=== PATIENT | male | born 1945 | race Caucasian/White ===

== ENCOUNTER → 2020-03-08 | Outpatient (CLI) | payer MEDICARE ==
--- NOTE | 2020-03-08 09:24 | XR ---
EXAMINATION TYPE: XR Hip Complete 2 views RT, XR knee complete 3 views RT DATE OF EXAM: 03/08/2020 Comparison: None Clinical History: 74-year-old male M25.551 R hip pain Findings: Right hip: Mild joint space narrowing in the right hip with subchondral sclerosis. Small focus of degenerative l abral ossification along the superolateral aspect. Mild marginal spurring at the femoral head neck ju nction. No acute fracture, subluxation, or dislocation seen. Right knee: There is tricompartmental degenerative spurring. Nonspecific anterior infrapatellar soft tissue swell ing. Extensive mechanism appears intact. No sizable joint effusion. There is [id number] narrowi ng of medial compartment joint space. No acute fracture, subluxation, or dislocation. Impression: 1. Right hip: Mild right hip OA. No acute osseous abnormality seen. 2. Right knee: Mild tricompartmental osteoarthrosis, more moderate in the medial compartment. Nonspec ific mild anterior infrapatellar soft tissue swelling.
== END | disposition home or self-care (01) ==
LOC: RADXRMAIN 08:20
PROVIDERS: ATTEND Family Medicine
DX: M16.11 Unilateral primary osteoarthritis, right hip (principal); M17.11 Unilateral primary osteoarthritis, right knee
CPT/HCPCS: 73502

== ENCOUNTER → 2020-04-29 | Outpatient (CLI) | payer OTHER ==
--- NOTE | 2020-04-29 13:37 | CT ---
EXAMINATION TYPE: CT chest wo con DATE OF EXAM: 04/29/2020 COMPARISON: No prior CT or chest CT at this institution. HISTORY: Solitary pulmonary nodule. CT DLP: 384.8 mGycm. Automated Exposure Control for Dose Reduction was Utilized. TECHNIQUE: CT scan of the thorax is performed without IV contrast. FINDINGS: LUNGS: Mild respiratory motion artifact degradation in the lower lungs. Mild linear scarring and/or a telectasis inferiorly. No suspicious nodules or masses. No pleural effusion or pneumothorax seen bila terally. MEDIASTINUM: Lack of IV contrast is noted to limit evaluation for mediastinal and especially hilar ad enopathy. There are no definitive greater than 1 cm hilar or mediastinal lymph nodes. No cardiomega ly or pericardial effusion is seen. Early moderate three-vessel coronary artery calcification. OTHER: Cholecystectomy clips noted. Slight scoliotic curvature with moderate multilevel spurring in t he spine. IMPRESSION: No suspicious pulmonary nodules or masses. No acute pulmonary process.
== END | disposition home or self-care (01) ==
LOC: RADCTMAIN 12:23
DX: R91.1 Solitary pulmonary nodule (principal); Z88.8 Allergy status to other drugs, medicaments and biological substances; F17.210 Nicotine dependence, cigarettes, uncomplicated
CPT/HCPCS: 71250

== ENCOUNTER → 2020-06-28 | Outpatient (CLI) | payer OTHER ==
--- NOTE | 2020-06-28 15:22 | XR ---
EXAMINATION TYPE: XR cervical spine limited DATE OF EXAM: 06/28/2020 CLINICAL HISTORY: pain TECHNIQUE: 3 views of the cervical spine are submitted. COMPARISON: None. FINDINGS: Severe multilevel degenerative disc disease extending from C4-5 through C6-7. Ventral and d orsal spondylosis with endplate sclerosis. No evidence for fracture or malalignment. IMPRESSION: No acute fracture or dislocation is seen in the cervical spine.
== END | disposition home or self-care (01) ==
LOC: RADXRMAIN 14:33
PROVIDERS: ATTEND Nurse Practitioner Family
DX: M54.2 Cervicalgia (principal)
CPT/HCPCS: 72040

== ENCOUNTER → 2020-10-06 | Outpatient (CLI) | payer MEDICARE ==
[2020-10-06 13:11] VITALS: BP 130/79; PULSE 80; RESP 16; TEMP 97.7
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
== END ==
LOC: PNWHC3 12:55
PROVIDERS: ATTEND Hospitalist
DX: M47.816 Spondylosis without myelopathy or radiculopathy, lumbar region (principal); M48.02 Spinal stenosis, cervical region; E78.5 Hyperlipidemia, unspecified; I10 Essential (primary) hypertension; E03.9 Hypothyroidism, unspecified; Z79.890 Hormone replacement therapy; Z79.899 Other long term (current) drug therapy; Z87.891 Personal history of nicotine dependence
CPT/HCPCS: 99211

== ENCOUNTER 2020-11-16 06:20 | Day surgery (SDC) | payer MEDICARE ==
[2020-11-12 15:23] VITALS: BMI 30.4
[~2020-11-16 06:20] MED LIST: LACTATED RINGERS 1,000 ML IV SCH
[2020-11-16 06:49] VITALS: RESP 16; TEMP 97.3
[2020-11-16] MEDS ORDERED: LIDOCAINE 1% (10MG/ML) FOR IV START INTRADERMA ONE (06:58)
[2020-11-16] MEDS ORDERED: TRIAMCINOLONE ACETONIDE 40 MG/ML 1 ML VIAL ONE (07:26)
[2020-11-16] MEDS ORDERED: ROPIVACAINE 5MG/ML 20ML VIAL ONE (07:26)
[2020-11-16] MEDS ORDERED: MIDAZOLAM 2 MG/2 ML VIAL ONE (07:26)
[2020-11-16] MEDS ORDERED: LACTATED RINGERS 1,000 ML IV ONE ×2 (07:51)
--- NOTE | 2020-11-16 08:09 | P.PCN ---
Date of Procedure: 11/16/20 Surgeon: Toya Scott Pathology: none sent Condition: stable Disposition: PACU Description of Procedure: PREOPERATIVE DIAGNOSIS : 1- Lumbar spondylosis with Facet Arthropathy without myelopathy . 2- Lumber degenerative disc disease POSTOPERATIVE DIAGNOSIS: 1- Lumbar spondylosis with Facet Arthropathy without myelopathy . 2- Lumber degenerative disc disease PROCEDURE: Diagnostic bilateral L4 -5 , and L5-S1 medial branch block under fluoroscopy Physician: Toya Scott MD ANESTHESIA: Local with 1% lidocaine; IV moderate conscious sedation with Versed 2 mg . EBL: Negligible COMPLICATION: None. PROCEDURE INDICATION: Chronic low back pain secondary to Facet arthropathy unresponsive to conservative treatment. PROCEDURE DESCRIPTION: the patient was seen and identified in the preop holding area , risks and benefits and possible complications of the procedure and alternatives were discussed with the patient, and the patient agreed to proceed with the procedure and signed the consent. IV was started and vital signs monitored during the procedure and fluoroscopy was used to maximize the benefit and accuracy of the needle placement, sedation was given to decrease patient anxiety, patient was taken to the procedure room and placed in prone position vital signs monitored. The patient was brought into the procedure room and placed in prone position. Skin was prepped with Chloraprep and draped in a sterile manner. Lidocaine 1% was used to numb the skin up at the target points that were chosen as follows: at the L5-S1 level which corresponds to the dorsal ramus of L5 the target points were at the superior medial aspect of the sacral ala on each side of the spine on the AP view of fluoroscopy, and for theL3 and L4 medial branches the target points were the connection between the transverse process and the superior to go process of L4 and L5 respectively on the oblique views of fluoroscopy. I used 22-gauge 3-1/2 inch Quincke spinal needles for this procedure and after contacting bone at the target points mentioned above I injected 1 mL of a mixture of Kenalog 40 mg +5 MLS of Ropivacaine 0.5% PF . Patient tolerated procedure well. At the end of the procedure the needles removed and a bandage applied after the skin was cleaned the cleaning solution. patient was then taken to the recovery room in stable condition and monitored in the recovery room for 20-30 minutes and discharged home in stable condition after discharge criteria met . A copy of the needle placement picture was saved to the C-arm machine.
[2020-11-16 08:12] VITALS: BP 117/72; PULSE 66
[2020-11-16] MEDS ORDERED: IV FLUID CONTINUATION 600 ML IV ONE (08:24)
--- NOTE | 2020-11-16 09:03 | FL ---
Fluoroscopy HISTORY: Pain 12 seconds fluoroscopy time supplied to the referring clinician. 4 intraoperative C-arm images docum ent the procedure. See dictated report from anesthesia.
== END 2020-11-16 08:30 | disposition home or self-care (01) ==
LOC: ORPAIN 06:20
PROVIDERS: ATTEND Anesthesiology
DX: G89.29 Other chronic pain (principal); M47.816 Spondylosis without myelopathy or radiculopathy, lumbar region; I10 Essential (primary) hypertension
CPT/HCPCS: 64493; 64494; J2250; J3301; J2795; 99152

== ENCOUNTER → 2020-12-08 | Outpatient (CLI) | payer MEDICARE ==
--- NOTE | 2020-12-08 10:53 | P.PN ---
Subjective Progress Note Date: 12/08/20 This is a follow-up visit for this 75-year-old male, with a chronic history of severe low back pain is diagnosed with lumbar spondylosis with lumbar facet arthropathy, and 11/16/2020 which helped done diagnostic medial branch block lumbar area at L4 5 and L5-S1, patient reported that since the injection his pain level dropped to 0, continue to to be 0/10, able to do more activity he denies any motor or sensory deficit Objective - Exam Physical Examinations : -Constitutiona : Cooperative , not in acute distress . -HEENT : nech : supple , no Lymphadenopathy , normal thyroid size . : eyes : no ptosis , no icterus, no photophobia . - neurologic : Cranial nerve II to XII intact , no focal neurological deffecit . -psychatric : alert , oriented X 3 , appropriate affect , intact judgment and insight . -Lymphatic : no Lymphadenopathy . - musculoskeltal : Lumber spine moter stegnth lower extremities ,thigh and legs 5/5 Right side , 5/5 Left side Assessment and Plan Plan: Assessment and plan=1-lumbar spondylosis with lumbar facet arthropathy without myelopathy Status post diagnostic medial branch block lumbar area at L4 5 and L5-S1 1 he reported that since the injection his pain dropped to 0 and he has 0 pain since the injection, Patient will follow up in the pain clinic when necessary in the futur we can schedule him for repeat diagnostic medial branch block at L4 5 and L5-S1 Time with Patient: Less than 30
[2020-12-08 11:19] VITALS: BP 149/84; PULSE 80; RESP 18; TEMP 98.1
== END ==
LOC: PNWHC3 10:02
PROVIDERS: ATTEND Specialist
DX: M47.816 Spondylosis without myelopathy or radiculopathy, lumbar region (principal)
CPT/HCPCS: 99211

== ENCOUNTER 2021-01-07 07:36 | Day surgery (SDC) | payer MEDICARE ==
[2021-01-04 11:58] VITALS: BMI 30.4
[~2021-01-07 07:36] MED LIST changes: +LIDOCAINE 1% (10MG/ML) FOR IV START INTRADERMA PRN
[2021-01-07 08:02] VITALS: TEMP 97.4
[2021-01-07] MEDS ORDERED: LIDOCAINE 1% INJ 10MG/ML (20 ML MDV) ONE (08:58)
[2021-01-07] MEDS ORDERED: PROPOFOL 10 MG/ML 20 ML VIAL IV ONE (08:58)
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
--- NOTE | 2021-01-07 09:17 | P.PCN ---
Date of Procedure: 01/07/21 Preoperative Diagnosis: Screening Postoperative Diagnosis: Diverticulosis Procedure(s) Performed: Colonoscopy Anesthesia: MAC Surgeon: Juan Francisco Porter Pathology: none sent Condition: stable Disposition: same day Indications for Procedure: 75-year-old male presents today for screening colonoscopy. Risks, benefits and alternatives were provided to the patient. He denies any blood in his stool. He believes his mother does have a history of colon cancer. Operative Findings: Diverticulosis Description of Procedure: The patient was brought into the endoscopy suite and placed in left lateral decubitus position. Adequate sedation was achieved using conscious sedation. A digital rectal exam was performed and mild internal hemorrhoids were palpated. An endoscope was then placed in the rectum and advanced to the cecum as identified by landmarks including the appendiceal orifice and the ileocecal valve. The prep was good. The colonoscope was then slowly withdrawn, examining for any mucosal abnormalities. The cecum, ascending, transverse, descending and sigmoid colon were visualized adequately. There were no large neoplastic lesions noted throughout the colon. There were no obvious polyps noted throughout the colon. Diverticulosis was noted in the sigmoid colon. Retroflexion was performed in the rectum and internal hemorrhoids were visible. Excess air was removed, the colonoscope withdrawn and the procedure terminated. The patient was then transferred to the recovery unit in stable condition. Repeat colonoscopy should be performed in 5 years.
[2021-01-07 09:33] VITALS: BP 120/72; PULSE 63; RESP 16
== END 2021-01-07 10:09 | disposition home or self-care (01) ==
LOC: ORWHC2ENDO 07:36
PROVIDERS: ATTEND Surgery
DX: Z12.11 Encounter for screening for malignant neoplasm of colon (principal); Z80.0 Family history of malignant neoplasm of digestive organs; I10 Essential (primary) hypertension; E78.5 Hyperlipidemia, unspecified; E07.9 Disorder of thyroid, unspecified; Z79.890 Hormone replacement therapy
CPT/HCPCS: G0121; J2001; J2704

== ENCOUNTER → 2021-01-21 | Day surgery (SDC) | payer MEDICARE ==
[2021-01-18 09:50] VITALS: BMI 30.7
[~2021-01-21] MED LIST changes: +IV FLUID CONTINUATION 600 ML IV ONE; +MIDAZOLAM 2 MG/2 ML VIAL ONE; +ROPIVACAINE 5MG/ML 20ML VIAL ONE; +fentaNYL (PF) 50 MCG/ML 2 ML AMP ONE; +methylPREDNISolone ACETATE 40 MG/ML 1 ML VIAL ONE
[2021-01-21 07:27] VITALS: TEMP 97.7
--- NOTE | 2021-01-21 08:29 | P.PCN ---
Date of Procedure: 01/21/21 Procedure(s) Performed: PREOPERATIVE DIAGNOSIS : 1- Lumbar spondylosis with Facet Arthropathy without myelopathy . 2- Lumber degenerative disc disease POSTOPERATIVE DIAGNOSIS: 1- Lumbar spondylosis with Facet Arthropathy without myelopathy . 2- Lumber degenerative disc disease PROCEDURE: Diagnostic bilateral L3 , L4 , and L5 medial branch block under fluoroscopy guidance(fluoroscopy images available in the radiology Department ) ( To target the facet joint between bilateral L4-5 , and L5-S1 ) ANESTHESIA: Monitored anesthesia care as per anesthesia department. EBL: Minimal COMPLICATION: None PROCEDURE INDICATION: Chronic low back pain secondary to Facet arthropathy unresponsive to conservative treatment. PROCEDURE DESCRIPTION: the patient was seen and identified in the preop holding area , risks and benefits and possible complications of the procedure and alternative were discussed with the patient, and the patient agreed to proceed with the procedure and signed the consent and vital signs monitored during the procedure and fluoroscopy was used to maximize the benefit and accuracy of the needle placement, and sedation was given to decrease patient anxiety, patient was taken to the procedure room and placed in prone position vital signs monitored in the back prepped with chlorhexidine X3 then under strict sterile technique using a right oblique fluoroscopy ,the junction of the transverse process and the superior articulating process of the right L3 , L4 , and L5 vertebra which corresponding to the fluoroscopy image of the eye of the Kp dog on the block side for the medial branches and subsequently , after local infiltration of skin and subcu tissuies with Ropivacaine 0.5 % , one mL at each level ,then 22-gauge Quincke-type needles , 3 needle was used , each one of them placed at the junction of the base of the transverse process and the superior articular process at the appropriate level, and the needle was advanced until the periosteum contacted, needle placement confirmed with AP oblique and lateral view and after appropriate needle placement confirmed, and after negative aspiration for heme and CSF and there was no paresthesia 1-1/2 mL of Ropivacaine 0.5% mixed with 20 mg Depo-Medrol , then half mL injected at each level after negative aspiration the needle subsequently removed and the same procedure repeated for the left side at left side at L3 , L4 and L5 levels. At the end of the procedure and the needles removed and a bandage applied after the skin was cleaned the cleaning solution patient taken to recovery room in stable condition and monitors in the recovery room for 20-30 minutes and discharged home in stable condition after discharge criteria met and patient will follow up with the pain clinic in 2-4 weeks
[2021-01-21 08:47] VITALS: RESP 16
[2021-01-21 08:52] VITALS: BP 117/65; PULSE 67
--- NOTE | 2021-01-21 08:54 | FL ---
Fluoroscopy HISTORY: Pain 6 seconds fluoroscopy time supplied to the referring clinician. 4 intraoperative C-arm images docume nt the procedure. See dictated report from anesthesia and.
== END ==
LOC: ORPAIN 07:07
PROVIDERS: ATTEND Specialist
DX: M47.816 Spondylosis without myelopathy or radiculopathy, lumbar region (principal); M51.36 Other intervertebral disc degeneration, lumbar region; G89.29 Other chronic pain; I10 Essential (primary) hypertension; E78.5 Hyperlipidemia, unspecified; E03.9 Hypothyroidism, unspecified; Z87.891 Personal history of nicotine dependence; Z85.46 Personal history of malignant neoplasm of prostate; Z98.890 Other specified postprocedural states; Z79.890 Hormone replacement therapy; Z79.899 Other long term (current) drug therapy
CPT/HCPCS: 64493; 64494; J2250; J1030; J3010; J2795

== ENCOUNTER → 2021-02-21 | Outpatient (CLI) | payer MEDICARE ==
[2021-02-21 08:46] VITALS: BP 161/81; PULSE 64; RESP 18; TEMP 97.8
--- NOTE | 2021-02-21 09:02 | P.PN ---
Subjective Progress Note Date: 02/21/21 This is a follow-up visit for this 75-year-old male, with a chronic history of severe low back pain is diagnosed with lumbar spondylosis with lumbar facet arthropathy, previously we have done diagnostic medial branch block lumbar area at L4 5 and L5-S1,x2 , patient reported that after the injection ,his pain level dropped to 0/10 after both injections, the pain relief lasted for a few weeks, able to do more activity he denies any motor or sensory deficit Physical Examinations : -Constitutiona : Cooperative , not in acute distress . -HEENT : nech : supple , no Lymphadenopathy , normal thyroid size . : eyes : no ptosis , no icterus, no photophobia . - neurologic : Cranial nerve II to XII intact , no focal neurological deffecit . -psychatric : alert , oriented X 3 , appropriate affect , intact judgment and insight . -Lymphatic : no Lymphadenopathy . - musculoskeltal : Lumber spine moter stegnth lower extremities ,thigh and legs 5/5 Right side , 5/5 Left side Facet loading test positive bilaterally Assessment and plan=1-lumbar spondylosis with lumbar facet arthropathy without myelopathy Status post diagnostic medial branch block lumbar area at L4 5 and L5-S1 2 he had 100% improvement of his low back pain after diagnostic medial branch block x2 Patient will be a good candidate to RFA medial branch block at L4 5 and L5-S1 Bilaterally - PQRS measures = - Patient's medications are documented in the chart. -Tobacco use is negative and counseling.Given. -Patient's has not received pneumococcal vaccine. -Advanced care planning discussed, patient not eligible. -Opiate contract not signed. -Pain positive and follow-up visit/procedure is scheduled. -Patient's blood pressure measured [ 161/81] , and documented in the record ,and patient will follow up with the primary care. -Patient's weight was measured and body mass index [ 30 ] above the normal limits and counseling was done. and patient instructed to follow-up with the primary care physician. -Patient was not identified as an unhealthy alcohol user Objective - Vital Signs Vital signs: Vital Signs Temp 97.8 F 02/21/21 08:41 Pulse 64 02/21/21 08:41 Resp 18 02/21/21 08:41 BP 161/81 02/21/21 08:41 Pulse Ox 97 02/21/21 08:41
== END ==
LOC: PNWHC3 08:35
PROVIDERS: ATTEND Specialist
DX: M47.816 Spondylosis without myelopathy or radiculopathy, lumbar region (principal)
CPT/HCPCS: 99211

== ENCOUNTER → 2021-04-01 | Day surgery (SDC) | payer MEDICARE ==
[2021-03-30 10:08] VITALS: BMI 30.7
[~2021-04-01] MED LIST changes: +IV FLUID CONTINUATION 1,000 ML IV ONE; -IV FLUID CONTINUATION 600 ML IV ONE; -LIDOCAINE 1% (10MG/ML) FOR IV START INTRADERMA PRN; +TRIAMCINOLONE ACETONIDE 40 MG/ML 1 ML VIAL ONE; -methylPREDNISolone ACETATE 40 MG/ML 1 ML VIAL ONE
[2021-04-01 08:30] VITALS: RESP 16; TEMP 97.6
--- NOTE | 2021-04-01 09:23 | P.PCN ---
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 Procedure: Bilateral L4-5 radiofrequency thermocoagulation of medial branch under fluoroscopic guidance Bilateral L5-S1 dorsal ramus radiofrequency thermocoagulation under fluoroscopic guidance Surgeon: Shiloh Loya Anesthesia: Local: 1% Lidocaine, IV sedation : Midazolam 2 mg, and fentanyl 100 micrograms. Complications: None Estimated blood loss: None. Specimen removed: None Fluoroscopic image: Saved to patient electronic medical records. Indications for Procedure: The patient is well known to pain clinic for his chronic low back pain management. The lumbar facet loading test was positive with a clinical diagnosis of lumbar facet arthropathy. Patient had marked decrease in pain after the diagnostic medial branch procedure. Came here for radiofrequency ablation for longer pain relief. PROCEDURE DESCRIPTION: The patient was seen and identified in the preoperative area. Risks, benefits, complications, and alternatives were discussed with the patient. The patient agreed to proceed with the procedure and signed the consent. IV was started. Vital signs were stable. Patient was taken to the procedure room and timeout was completed. The patient was placed in the prone position on procedure table and a pillow was placed under the abdomen to reduce lumbar lordosis. The lumbosacral area was prepped and draped in the usual sterile fashion. Critical pause was taken. Vital signs were closely monitored during the procedure. The fluoroscopic camera was placed in the anteroposterior position to identify the junction of superior articular process and its corresponding injection with its transverse process of Right side L4, L5, S1, which were anesthetized with 1% lidocaine. We used 20-gauge 100-mm curved, sharp radiofrequency cannula with 10-mm active tip for the procedure. The first cannula was guided by fluoroscopy to the S1 superior articular process and its corresponding junction with its ala. The second cannula was guided by fluoroscopy into the L5 superior articular process and its corresponding junction with its transverse process and pedicle. The third cannula was guided by fluoroscopy into the L4 SAP and its corresponding junction with its transverse process and its pedicle. After confirmation of needle tip position on oblique view, lateral view , then each site underwent motor testing at 2 Hz and 0 to 2.5 volts, and there was good motor stimulation in the back and no radicular symptoms or paresthesias. After confirmation of motor testing, each site was infiltrated with 0.5 mL at each level of block solution. Block solution contained 5 mL of 0.5% Ropivacaine preservative free mixed with 40 MG of Kenalog. At this time, each site was ablated using continuous radiofrequency mode at 80 degrees Celsius for 90 seconds at each level. At the end of the procedure, each needle was retracted approximately 1 cm and the skin was infiltrated with 0.5% ropivacaine preservative free 1 ml at each site. Entire procedure repeated on the left side. All the needles removed intact. Skin was cleansed and bandages were applied. Disposition : The patient tolerated the procedure very well. The patient was transferred to the recovery room and remained stable until discharged home. The patient was given detailed discharge instructions for infection, bleeding, and increased pain at the injection site, and was advised to seek immediate medical attention should significant side effects develop. The patient will be scheduled with Pain Clinic within 4 weeks
--- NOTE | 2021-04-01 09:31 | FL ---
Fluoroscopy INDICATION: Pain FINDINGS: Fluoroscopy time: 8 seconds. Images obtained: 9. IMPRESSIONS: 1. Documentation of fluoroscopy.
[2021-04-01 09:58] VITALS: BP 117/70; PULSE 65
== END ==
LOC: ORPAIN 07:58
DX: M47.816 Spondylosis without myelopathy or radiculopathy, lumbar region (principal); G89.29 Other chronic pain
CPT/HCPCS: 64635; 64636; J2250; J3301; J3010; J2795

== ENCOUNTER → 2021-04-25 | Outpatient (CLI) | payer MEDICARE ==
[2021-04-25 08:38] VITALS: BP 134/79; PULSE 78; RESP 18; TEMP 98.1
--- NOTE | 2021-04-25 09:10 | P.PN ---
Subjective Progress Note Date: 04/25/21 This is a follow-up visit for this 75-year-old male, with a chronic history of severe low back pain is diagnosed with lumbar spondylosis with lumbar facet arthropathy, recently we have done RFA medial branch block lumbar area at L4 5 and L5-S1 , patient reported that his low back pain , both significantly and he had 0 pain in the low back area, currently is complaining of severe left hip pain which is increased with any activity, he denies any motor or sensory deficit Physical Examinations : -Constitutiona : Cooperative , not in acute distress . -HEENT : nech : supple , no Lymphadenopathy , normal thyroid size . : eyes : no ptosis , no icterus, no photophobia . - neurologic : Cranial nerve II to XII intact , no focal neurological deffecit . -psychatric : alert , oriented X 3 , appropriate affect , intact judgment and insight . -Lymphatic : no Lymphadenopathy . - musculoskeltal : Lumber spine moter stegnth lower extremities ,thigh and legs 4/5 Right side , 4/5 Left side Facet loading test positive bilaterally Tenderness over the left trochanteric bursa Hip joint full range of motion bilater ally Assessment and plan=1-lumbar spondylosis with lumbar facet arthropathy without myelopathy 2-left trochanteric bursitis Status post RFA medial branch block lumbar area at L4 5 and L5-S1 , patient gets excellent pain relief he could benefit from left trochanteric bursa steroid injection. Patient could benefit from physical therapy, because he feels some weakness in his lower extremity, physical therapy will improve the muscle tone in the lower extremity - PQRS measures = - Patient's medications are documented in the chart. -Tobacco use is negative and counseling.Given. -Patient's has not received pneumococcal vaccine. -Advanced care planning discussed, patient not eligible. -Opiate contract not signed. -Pain positive and follow-up visit/procedure is scheduled. -Patient's blood pressure measured [ 134/79] , and documented in the record ,and patient will follow up with the primary care. -Patient's weight was measured and body mass index [ 30 ] above the normal limits and counseling was done. and patient instructed to follow-up with the primary care physician. -Patient was not identified as an unhealthy alcohol user Objective - Vital Signs Vital signs: Vital Signs Temp 98.1 F 04/25/21 08:33 Pulse 78 04/25/21 08:33 Resp 18 04/25/21 08:33 BP 134/79 04/25/21 08:33 Pulse Ox 96 04/25/21 08:33 Intake & Output 04/24/21 04/25/21 04/25/21 18:59 06:59 18:59 Weight 97.522 kg
== END | disposition home or self-care (01) ==
LOC: PNWHC3 08:19
PROVIDERS: ATTEND Specialist
DX: M47.896 Other spondylosis, lumbar region (principal); M70.62 Trochanteric bursitis, left hip
CPT/HCPCS: 99211

== ENCOUNTER 2021-06-07 08:42 | Day surgery (SDC) | payer MEDICARE ==
[2021-05-31 14:00] VITALS: BMI 30.7
[~2021-06-07 08:42] MED LIST changes: -IV FLUID CONTINUATION 1,000 ML IV ONE; -MIDAZOLAM 2 MG/2 ML VIAL ONE; -ROPIVACAINE 5MG/ML 20ML VIAL ONE; -TRIAMCINOLONE ACETONIDE 40 MG/ML 1 ML VIAL ONE; -fentaNYL (PF) 50 MCG/ML 2 ML AMP ONE
[2021-06-07] MEDS ORDERED: LACTATED RINGERS 1,000 ML IV SCH (09:15)
[2021-06-07 09:28] VITALS: RESP 16; TEMP 97.1
[2021-06-07] MEDS ORDERED: TRIAMCINOLONE ACETONIDE 40 MG/ML 1 ML VIAL ONE (09:59)
[2021-06-07] MEDS ORDERED: IOPAMIDOL M200 10 ML VIAL ONE (09:59)
[2021-06-07] MEDS ORDERED: fentaNYL (PF) 50 MCG/ML 2 ML AMP ONE (09:59)
[2021-06-07] MEDS ORDERED: ROPIVACAINE 5MG/ML 20ML VIAL ONE (09:59)
[2021-06-07] MEDS ORDERED: MIDAZOLAM 2 MG/2 ML VIAL ONE (09:59)
--- NOTE | 2021-06-07 10:13 | P.PCN ---
Date of Procedure: 06/07/21 Description of Procedure: Pre- and Post-operative Diagnosis: Left-sided Greater Trochanteric Bursitis Procedure: Left-sided Greater Trochanteric Bursa injection under fluoroscopic guidance Surgeon: Dr.Rudram Davis Anesthesia: Local: 1% Lidocaine, IV sedation : Versed, and fentanyl Complications: none Indications for Procedure: Patient had a history of greater trochanteric bursitis. Tried conservative therapy with minimal response. Came here for intervention procedure. Procedure and Findings: The patient was seen and examined. The written informed consent was obtained after explaining the risks, benefits and alternatives of the procedure to the patient. Patient agreed to proceed for the procedure signed the informed consent. IV started for intraoperative sedation. The patient was brought to the procedure room and was placed in supine position on the operating table. The anesthesia was started as mentioned above and monitoring was done with noninvasive blood pressure cuff, EKG and pulse oximetry. The skin preparation was done with ChloraPrep 1, and draping was don e in usual sterile fashion. Sterile technique was observed throughout the procedure. Using fluoroscope in the AP view, the greater trochanter was identified. The middle of the greater trochanter was targeted for needle placement. 3 ml of 1% Lidocaine was injected with a 25 gauge needle to achieve adequate local anesthesia of the skin and subcutaneous tissue. A 22 gauge 3.5 inch needle was introduced and advanced into the target area under direct fluoroscopic guidance. A bony contact was felt and the needle was withdrawn for about two millimeters. 1 mL of Isovue 200 contrast was injected. A negative aspiration was confirmed. A total of 5ml solution containing Kenalog 40 mg and 4 ml of 0.5% preservative-free ropivacaine was injected slowly. The needle was removed intact, area was cleaned and bandage was applied. The patient tolerated the procedure very well. Additional comments: none Disposition : The patient was transferred to the recovery room and remained stable until discharged home. The patient was given detailed discharge instructions for infection, bleeding, increased pain at the injection site, and was advised to seek immediate medical attention should significant side effects develop. Patient was routinely examined by RN before discharging home. The patient will be followed up with Pain Clinic within 4 weeks.
[2021-06-07] MEDS ORDERED: IV FLUID CONTINUATION 700 ML IV ONE (10:15)
[2021-06-07 10:52] VITALS: BP 114/68; PULSE 62
--- NOTE | 2021-06-07 12:41 | FL ---
EXAMINATION TYPE: FL guided pain mgmt statistic DATE OF EXAM: 06/07/2021 FLUOROSCOPY Fluoroscopy time of 2 seconds was used during greater trochanteric bursal injection. 1 image/s docum ent/s the procedure.
== END 2021-06-07 10:55 | disposition home or self-care (01) ==
LOC: ORPAIN 08:42
DX: M70.62 Trochanteric bursitis, left hip (principal); M19.90 Unspecified osteoarthritis, unspecified site; I10 Essential (primary) hypertension; Z90.49 Acquired absence of other specified parts of digestive tract; Z96.652 Presence of left artificial knee joint
CPT/HCPCS: 20610; J2250; J3301; J3010; Q9966; J2795

== ENCOUNTER → 2021-07-04 | Outpatient (CLI) | payer MEDICARE ==
[2021-07-04 08:53] VITALS: BP 127/69; PULSE 71; RESP 18; TEMP 98.3
--- NOTE | 2021-07-04 09:00 | P.PN ---
Subjective Progress Note Date: 07/04/21 Principal diagnosis: A 75 yr old male with a history of severe and chronic low back pain secondary to lumbar degenerative disc diseases and lumbar spondylosis with facet arthropathy presents today for follow-up of a left hip trochanteric injection. Patient admits he experienced 90% pain relief with the procedure. Currently, he admits to alternating lower for leg pain of 2 out of 10 in intensity but can escalate as high as 5 out of 10 in intensity activity. Pain is dull/ achy in the forelegs and is provoked with standing for 20 minutes or walking. Pain is alleviated with Motrin, Biofreeze gel, injections, heat, physical therapy 2 weeks ago, home stretching regimen, use of a walking cane and rest. Interventional pain procedures completed include bilateral lumbar RFA and left trochanteric injection Patient is currently on tramadol prn Patient denies any side effects of the medication(s), denies excessive drowsiness or sleepiness, denies suicidal ideation and reports that the current pain medication is helping to control the pain and improve activities of daily living. Patient denies any motor or sensory deficits. Patient denies any fever or night sweats, denies any change in the bowel movements or urination. Physical Examination: -Constitutional: Cooperative. Not in acute distress . -HEENT: Neck is supple. No lymphadenopathy. No thyromegaly. Normal thyroid size. Eyes: No ptosis , no icterus, no photophobia. ENT: No auditory deficits. Normal oropharynx. No Thrush. - Respiratory: Chest clear to auscultations bilaterally. No wheezing. No rhonchi. - Cardiovascular: Regular rate and rhythm. S1 / S2 , no S3 , no S4. - Gastrointestinal: Abdomen soft no tenderness. Bowel sounds positive in all four quadrants. No organomegaly. - Genitourinary: Deferred. - Neurologic: Cranial nerve II to XII intact. No focal neurological deficits. - Psychatric: Alert & oriented x 3. Matching mood & appropriate affect. Judgment and insight intact. - Lymphatic: No Lymphadenopathy. - Musculoskeletal: Cervical spine: Muscle bulk/ tone/ strength in the bilateral upper extremities normal. Facet loading test cervical area positive. Lumbar spine: 1+ non pitting lower extremity edema up to knees bilaterally with scarce hair presence Motor bulk/ tone/ strength lower extremities , thigh and legs : 5/5 Deep tendon reflexes : Normal Knee Jerk. Normal Ankle Jerk . Lumbar Facet Loading Test positive Straight Leg Raise: positive at 30 degree right side/ left side Vishal test: positive right side / left side Range of motion: Range of motion in flexion of the lumbar spine <60 degrees Range of motion: Extension of the lumbar spine <20 degrees Severe tenderness over the Sacroiliac joint: right side / left side Assessment and plan: Chronic low back pain secondary to lumbar degenerative disc disease , lumbar spondylosis with facet arthropathy without myelopathy Bilateral lower extremity pain does not appear to have a neuromuscular origin. In light of physical exam findings, patient should follow-up with his PCP regarding possible PAD diagnosis All patient questions answered MAPS reviewed and it was appropriate. I have spent 31 minutes on patient care today. Dr Baraohna was available by phone for the evaluation of this patient. The time was used to review the medical records including relevant urine studies and Prescription history (MAPs), review of the available imaging, evaluation and examination of the patient, coordination of care with the medical staff and if applicable referring physicians, as well as creation of the medical record Objective - Vital Signs Vital signs: Vital Signs Temp 98.3 F 07/04/21 08:45 Pulse 71 07/04/21 08:45 Resp 18 07/04/21 08:45 BP 127/69 07/04/21 08:45 Pulse Ox 97 07/04/21 08:45 PQRS Measure Charge Sheet Mode of Arrival: Ambulatory - Pain Location Bilateral Leg Non-Pharmacological Interventions: Heat, Home Exercise, Inactivity, Physical Therapy, Sitting, Stretching Pharmacological Interventions: Block, PRN Medication, Topical Medication PQRS Narrative: Blood Pressure 127/69 Pain Intensity [Bilateral Leg] 5 Pain Intensity [None] 0 Scale Used Numeric (1 - 10) Hx Alcohol Use (MH) Yes Home Medications: Ambulatory Orders Enalapril [Vasotec] 10 mg PO DAILY@189910/05/20 Levothyroxine Sodium 88 mcg PO 189910/05/20 Multivit-Min/Folic/Vit K/Lycop [Men's Multivitamin Tablet] 1 each PO 10/05/20 [place]-3 Fatty Acids/Fish Oil [Fish Oil 1,000 mg Softgel] 1 each PO 10/05/20 Rosuvastatin Calcium 5 mg PO DAILY@189910/05/20 Ubidecarenone [Co Q-10] 200 mg PO 10/05/20 traMADol HCL [Ultram] 50 mg PO TID PRN 10/05/20 Nf-Horse Ligament Gel 1 applic TOPICAL DIRECTED PRN 03/30/21 Ibuprofen [Motrin] 600 mg PO Q8HR PRN 04/01/21
== END ==
LOC: PNWHC3 08:28
PROVIDERS: ATTEND Physician Assistant Medical
DX: M51.36 Other intervertebral disc degeneration, lumbar region (principal); M47.816 Spondylosis without myelopathy or radiculopathy, lumbar region; G89.29 Other chronic pain
CPT/HCPCS: 99211

== ENCOUNTER → 2021-11-07 | Outpatient (CLI) | payer MEDICARE ==
[2021-11-07 10:00] VITALS: BP 158/83; PULSE 63; RESP 18; TEMP 98
--- NOTE | 2021-11-07 10:15 | P.PAINPG ---
Objective - Vital Signs Vital signs: Vital Signs Temp 98 F 11/07/21 09:50 Pulse 63 11/07/21 09:50 Resp 18 11/07/21 09:50 BP 158/83 11/07/21 09:50 Pulse Ox 99 11/07/21 09:50 FiO2 PQRS Measure Charge Sheet Mode of Arrival: Ambulatory Comment: A 76 yr old male with at side with a history of severe and chronic low back pain secondary to lumbar degenerative disc diseases and lumbar spondylosis with facet arthropathy presents today for evaluation s/p BLE pain with radiation to the feet. Pt underwent a BL venous doppler which was negative for vascular claudication. Pain level is currently at 8 out of 10 in intensity, throbbing, aching, shooting pain from the knees bilaterally to the feet. Pain is provoked by standing, walking and other weightbearing activity. Pain is alleviated with medications, topicals, injections, heat, physical therapy of the lower extremities which ended May 2021 as patient stayed in [place], home stretching regimen, repositioning and rest. Interventional pain procedures completed include BL RFA L3-L5, L trochanteric hip bursa injection 1 Patient is currently on Neurontin from his PCP Patient denies any side effects of the medication(s), denies excessive drowsiness or sleepiness, denies suicidal ideation and reports that the current pain medication is helping to control the pain and improve activities of daily living. Patient denies any motor or sensory deficits. Patient denies any fever or night sweats, denies any change in the bowel movements or urination. Physical Examination: -Constitutional: Cooperative. Not in acute distress . -HEENT: Neck is supple. No lymphadenopathy. No thyromegaly. Normal thyroid size. Eyes: No ptosis , no icterus, no photophobia. ENT: No auditory deficits. Normal oropharynx. No Thrush. - Respiratory: Chest clear to auscultations bilaterally. No wheezing. No rhonchi. - Cardiovascular: Regular rate and rhythm. S1 / S2 , no S3 , no S4. - Gastrointestinal: Abdomen soft no tenderness. Bowel sounds positive in all four quadrants. No organomegaly. - Genitourinary: Deferred. - Neurologic: Cranial nerve II to XII intact. No focal neurological deficits. - Psychatric: Alert & oriented x 3. Matching mood & appropriate affect. Judgment and insight intact. - Lymphatic: No Lymphadenopathy. - Musculoskeletal: Cervical spine: Muscle bulk/ tone/ strength in the bilateral upper extremities normal Vertebral body tenderness to palpation over Facet loading test positive Thoracic spine Muscle bulk / tone/ strength in the bilateral paraspinal muscles normal Vertebral body tender to palpation over Facet loading test positive Lumbar spine: Motor bulk/ tone/ strength lower extremities , thigh and legs : 5/5 Deep tendon reflexes : Normal Knee Jerk. Normal Ankle Jerk . Vertebral body tenderness to palpation over Lumbar Facet Loading Test positive Straight Leg Raise: positive at 30 degrees right side/ left side Gaenslen's Test positive Sacral spine : Severe tenderness over the Sacroiliac joint: right side / left side Range of motion: Flexion of the lumbar spine <60 degrees Range of motion: Extension of the lumbar spine <20 degrees Gaenslen's Test positive Irineo's Test positive Vishal test: positive right side / left side Thigh Thrust Test Sacral Thrust Test Assessment and plan: Chronic BLE pain secondary to lumbar degenerative disc disease , lumbar spondylosis, neurogenic claudication Indication of the L RFA L4-L5, L5-S1. And underwent procedure in January 2021 with substantial and optimal pain relief. Risks, benefits of procedure discussed and pt verbalized understanding. Denies anticoagulant use or medical history of diabetes. All patient questions answered MAPS reviewed and it was appropriate. I have spent 31 minutes on patient care today. Dr Barahona was available by phone for the evaluation of this patient. The time was used to review the medical records including relevant urine studies and Prescription history ( MAPs), review of the available imaging, evaluation and examination of the patient, coordination of care with the medical staff and if applicable referring physicians, as well as creation of the medical record - Pain Location Bilateral Foot Non-Pharmacological Interventions: Heat, Physical Therapy, Stretching Pharmacological Interventions: Medication, Topical Medication PQRS Narrative: Blood Pressure 158/83 Pain Intensity [Bilateral Foot 4 ] Scale Used Numeric (1 - 10) Hx Alcohol Use (MH) Yes: 2 BEERS A WEEK Home Medications: Ambulatory Orders Enalapril [Vasotec] 10 mg PO DAILY@189910/05/20 Levothyroxine Sodium 88 mcg PO 189910/05/20 Multivit-Min/Folic/Vit K/Lycop [Men's Multivitamin Tablet] 1 each PO HS 10/05/20 Rosuvastatin Calcium 5 mg PO DAILY@189910/05/20 Ubidecarenone [Co Q-10] 200 mg PO HS 10/05/20 traMADol HCL [Ultram] 50 mg PO TID PRN 10/05/20 Nf-Horse Ligament Gel 1 applic TOPICAL DIRECTED PRN 03/30/21 Ibuprofen [Motrin] 800 mg PO Q8HR PRN 04/01/21 Diclofenac Sodium [Voltaren Arthritis Pain 1% Gel] 1 applic TOPICAL BID 30 Days #100 gram 11/07/21 Controlled Substance Measures - Controlled Substance Measures Is patient prescribed a controlled substance at discharge?: No
== END ==
LOC: PNWHC3 09:27
PROVIDERS: ATTEND Specialist
DX: M51.36 Other intervertebral disc degeneration, lumbar region (principal); M47.816 Spondylosis without myelopathy or radiculopathy, lumbar region; G89.29 Other chronic pain; M48.062 Spinal stenosis, lumbar region with neurogenic claudication
CPT/HCPCS: 99211

== ENCOUNTER 2021-12-09 06:30 | Day surgery (SDC) | payer MEDICARE ==
[2021-12-08 08:27] VITALS: BMI 30.7
[2021-12-09 07:11] VITALS: TEMP 97.5
[2021-12-09] MEDS ORDERED: LACTATED RINGERS 1,000 ML IV ONE (07:12)
[2021-12-09] MEDS ORDERED: TRIAMCINOLONE ACETONIDE 40 MG/ML 1 ML VIAL ONE (07:40)
[2021-12-09] MEDS ORDERED: fentaNYL (PF) 50 MCG/ML 2 ML AMP ONE (07:40)
[2021-12-09] MEDS ORDERED: MIDAZOLAM 2 MG/2 ML VIAL ONE (07:40)
[2021-12-09] MEDS ORDERED: ROPIVACAINE 5MG/ML 20ML VIAL ONE (07:40)
[2021-12-09] MEDS ORDERED: LACTATED RINGERS 1,000 ML IV SCH (07:45)
--- NOTE | 2021-12-09 08:13 | P.PCN ---
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 Procedure: Bilateral L4-5 radiofrequency thermocoagulation of medial branch under fluoroscopic guidance Bilateral L5-S1 dorsal ramus radiofrequency thermocoagulation under fluoroscopic guidance Surgeon: Shiloh Loya Anesthesia: Local: 1% Lidocaine, IV sedation : Midazolam 2 mg, and fentanyl 100+ 50 + 50 micrograms. Complications: None Estimated blood loss: None. Specimen removed: None Fluoroscopic image: Saved to patient electronic medical records. Indications for Procedure: The patient is well known to pain clinic for his chronic low back pain management. The lumbar facet loading test was positive with a clinical diagnosis of lumbar facet arthropathy. Patient had marked decrease in pain after the diagnostic medial branch procedure. Came here for radiofrequency ablation for longer pain relief. PROCEDURE DESCRIPTION: The patient was seen and identified in the preoperative area. Risks, benefits, complications, and alternatives were discussed with the patient. The patient agreed to proceed with the procedure and signed the consent. IV was started. Vital signs were stable. Patient was taken to the procedure room and timeout was completed. The patient was placed in the prone position on procedure table and a pillow was placed under the abdomen to reduce lumbar lordosis. The lumbosacral area was prepped and draped in the usual sterile fashion. Critical pause was taken. Vital signs were closely monitored during the procedure. The fluoroscopic camera was placed in the anteroposterior position to identify the junction of superior articular process and its corresponding injection with its transverse process of Right side L4, L5, S1, which were anesthetized with 1% lidocaine. We used 18-gauge 100-mm curved, sharp radiofrequency cannula with 10-mm active tip for the procedure. The first cannula was guided by fluoroscopy to the S1 superior articular process and its corresponding junction with its ala. The second cannula was guided by fluoroscopy into the L5 superior articular process and its corresponding junction with its transverse process and pedicle. The third cannula was guided by fluoroscopy into the L4 SAP and its corresponding junction with its transverse process and its pedicle. After confirmation of needle tip position on oblique view, each site underwent motor testing at 2 Hz and 0 to 2.5 volts, and there was good motor stimulation in the back and no radicular symptoms or paresthesias. After confirmation of motor testing, 0.5 mL of block solution injected at each site . Block solution contained 3 mL of 0.5% ropivacaine preservative free mixed with 20 MG of Kenalog. At this time, each site was ablated using continuous radiofrequency mode at 80 degrees Celsius for 90 seconds at each level. At the end of the procedure, each needle was retracted approximately 1 cm and the skin was infiltrated with 0.5% ropivacaine preservative free 1 ml at each site. Skin was cleansed and bandages were applied. Entire procedure repeated on the left side. Skin was cleansed and bandages were applied. Total Kenalog used for the procedure: 40 MG Disposition : The patient tolerated the procedure very well. The patient was transferred to the recovery room and remained stable until discharged home. The patient was given detailed discharge instructions for infection, bleeding, and increased pain at the injection site, and was advised to seek immediate medical attention should significant side effects develop. The patient will be scheduled with Pain Clinic within 4 weeks.
[2021-12-09] MEDS ORDERED: IV FLUID CONTINUATION 1,000 ML IV ONE (08:15)
--- NOTE | 2021-12-09 08:16 | FL ---
EXAMINATION TYPE: FL guided pain mgmt statistic DATE OF EXAM: 12/09/2021 CLINICAL HISTORY: Low back pain. TECHNIQUE: Fluoroscopy. COMPARISON: None. FINDINGS: Fluoroscopic guidance was provided during pain relief procedure performed by Dr. Davis . A total of 9 seconds of fluoroscopic time was utilized during the procedure and 8 spot images ar e acquired. Images acquired shows needle localization at several levels in the lumbar spine. IMPRESSION: As Above.
[2021-12-09 08:21] VITALS: RESP 16
[2021-12-09 08:34] VITALS: BP 128/76; PULSE 61
== END 2021-12-09 08:46 | disposition home or self-care (01) ==
LOC: ORPAIN 06:30
DX: M47.816 Spondylosis without myelopathy or radiculopathy, lumbar region (principal); G89.29 Other chronic pain; E03.9 Hypothyroidism, unspecified; I10 Essential (primary) hypertension; E78.00 Pure hypercholesterolemia, unspecified; E78.5 Hyperlipidemia, unspecified; Z87.891 Personal history of nicotine dependence; Z79.899 Other long term (current) drug therapy; Z79.890 Hormone replacement therapy; Z80.9 Family history of malignant neoplasm, unspecified
CPT/HCPCS: 64635; 64636 ×2; J2250; J3301; J3010; J2795

== ENCOUNTER → 2022-01-04 | Outpatient (CLI) | payer MEDICARE ==
[2022-01-04 09:04] VITALS: BP 153/80; PULSE 69; RESP 18; TEMP 97.6
--- NOTE | 2022-01-04 15:24 | P.PAINPG ---
PQRS Measure Charge Sheet Comment: A 76 yr old male with a history of severe and chronic low back pain secondary to lumbar degenerative disc diseases and lumbar spondylosis with facet arthropathy presents today for evaluation s/p BL RFA L3-L5. Pt states he experienced 95% pain relief s/p procedure. Pain level is currently at 5/10 in intensity, constant, dull/ achy in the mid to lower aspects of his lumbar spine without radiation of pain. Radiating pain has been relieved with the latest RFA, per pt. Pain is provoked by lifting, twisting and bending as pt states he was helping his daughter move a week ago when this pain started. Pain is alleviated with injections, topicals, heat, PT in 2020, home exercise regimen, repositioning and rest. Pt would like to try a muscle relaxer to see if it relieves the pain & spasms also. Interventional pain procedures completed include BL RFA L3-L5 x 2, L Trochanteric Injection Patient is currently on DENIES Patient denies any side effects of the medication(s), denies excessive drowsiness or sleepiness, denies suicidal ideation and reports that the current pain medication is helping to control the pain and improve activities of daily living. Patient denies any motor or sensory deficits. Patient denies any fever or night sweats, denies any change in the bowel movements or urination. Physical Examination: -Constitutional: Cooperative. Not in acute distress . - Neurologic: Cranial nerve II to XII intact. No focal neurological deficits. - Psychatric: Alert & oriented x 3. Matching mood & appropriate affect. Judgment and insight intact. - Musculoskeletal: Cervical spine: Muscle bulk/ tone/ strength in the bilateral upper extremities normal Vertebral body tenderness to palpation over Spurling test positive Distraction test positive Facet loading test positive Thoracic spine Muscle bulk / tone/ strength in the bilateral paraspinal muscles normal Vertebral body tender to palpation over Facet loading test positive Lumbar spine: Motor bulk/ tone/ strength lower extremities , thigh and legs : 5/5 Lumbar paraspinal TTP and muscle spasms noted over BL L2-S1 Deep tendon reflexes : Normal Knee Jerk. Normal Ankle Jerk . Vertebral body tenderness to palpation over Lumbar Facet Loading Test positive Straight Leg Raise: positive at 30 degrees right side/ left side Gaenslen's Test positive Sacral spine : Severe tenderness over the Sacroiliac joint: right side / left side Range of motion: Flexion of the lumbar spine <60 degrees Range of motion: Extension of the lumbar spine <20 degrees Gaenslen's Test positive Irineo's Test positive Vishal test: positive right side / left side Thigh Thrust Test Sacral Thrust Test Assessment and plan: Chronic low back pain secondary to lumbar degenerative disc disease , lumbar spondylosis with facet arthropathy without myelopathy Recommendation of BL TPIs L2-S1. May need a series of injections, up to 4 per 12 mo period, for optimal pain relief. Risks, benefits of procedure discussed and pt verbalized understanding. Denies anticoagulant use or medical history of diabetes. Also recommending PT integrated w massage twice weekly x 6 weeks Dx M51.36 All patient questions answered MAPS reviewed and it was appropriate. Prescription refill for Zanaflex 4mg cap BID prn spasms #60 NR I have spent less than 30 minutes on patient care today. Dr Barahona was available by phone for the evaluation of this patient. The time was used to review the medical records including relevant urine studies and Prescription history (MAPs), review of the available imaging, evaluation and examination of the patient, coordination of care with the medical staff and if applicable referring physicians, as well as creation of the medical record PQRS Narrative: Hx Alcohol Use (MH) Yes: 2 BEERS A WEEK Home Medications: Ambulatory Orders Enalapril [Vasotec] 10 mg PO DAILY@189910/05/20 Levothyroxine Sodium 88 mcg PO 0 10/05/20 Multivit-Min/Folic/Vit K/Lycop [Men's Multivitamin Tablet] 1 each PO HS 10/05/20 Rosuvastatin Calcium 5 mg PO DAILY@189910/05/20 Ubidecarenone [Co Q-10] 200 mg PO HS 10/05/20 traMADol HCL [Ultram] 50 mg PO TID PRN 10/05/20 Nf-Horse Ligament Gel 1 applic TOPICAL DIRECTED PRN 03/30/21 Ibuprofen [Motrin] 800 mg PO Q8HR PRN 04/01/21 Diclofenac Sodium [Voltaren Arthritis Pain 1% Gel] 1 applic TOPICAL BID 30 Days #100 gram 11/07/21 tiZANidine HCL [Zanaflex] 4 mg PO Q12H PRN 30 Days #60 capsule 01/04/22 Controlled Substance Measures - Controlled Substance Measures Is patient prescribed a controlled substance at discharge?: No
== END ==
LOC: PNWHC3 08:24
PROVIDERS: ATTEND Specialist
DX: G89.29 Other chronic pain (principal); M51.36 Other intervertebral disc degeneration, lumbar region; M47.816 Spondylosis without myelopathy or radiculopathy, lumbar region
CPT/HCPCS: 99211

== ENCOUNTER → 2022-10-04 | Outpatient (CLI) | payer MEDICARE ==
[2022-10-04 08:52] VITALS: BP 138/88; PULSE 74; RESP 18; TEMP 97.7
--- NOTE | 2022-10-04 14:30 | P.PAINPG ---
PQRS Measure Charge Sheet Comment: A 77 yr old male with a history of severe and chronic LBP secondary to lumbar DDD and spondylosis with facet arthropathy without myelopathy presents today for evaluation. Pt states he experienced 90% relief x 7 mo s/p procedure. Pain level is provoked at 10 /10 in intensity, intermittent, localized in the lumbar spine, sharp in character w shooting towards the BLEs and feet. Pain is provoked by walking/ standing for periods of 15 min or more. Pain is alleviated with PT x 5 wks in Jan 2022, chiropractic treatments x 2 wks weekly in Nov 2021, heat, medications, topicals, repositioning and rest. Interventional pain procedures completed include BL RFA L3-L5 (last Nov 2021), L Trochanteric injection Patient is currently on Ibu Patient denies any side effects of the medication(s), denies excessive drowsiness or sleepiness, denies suicidal ideation and reports that the current pain medication is helping to control the pain and improve activities of daily living. Patient denies any motor or sensory deficits. Patient denies any fever or night sweats, denies any change in the bowel movements or urination. Physical Examination: -Constitutional: Cooperative. Not in acute distress . - Neurologic: Cranial nerve II to XII intact. No focal neurological deficits. - Psychatric: Alert & oriented x 3. Matching mood & appropriate affect. Judgment and insight intact. - Musculoskeletal: Cervical spine: Muscle bulk/ tone/ strength in the bilateral upper extremities normal Vertebral body tenderness to palpation over Spurling test positive Distraction test positive Facet loading test positive TTP Thoracic spine Muscle bulk / tone/ strength in the bilateral paraspinal muscles normal Vertebral body tender to palpation over Facet loading test positive TTP Lumbar spine: Motor bulk/ tone/ strength lower extremities , thigh and legs : 5/5 Deep tendon reflexes : Normal Knee Jerk. Normal Ankle Jerk . Vertebral body tenderness to palpation over Lumbar Facet Loading Test positive over BL L4-L5, L5-S1 Straight Leg Raise: positive at 30 degrees right side/ left side Gaenslen's Test positive BL Sacral spine : Severe tenderness over the Sacroiliac joint: right side / left side Range of motion: Flexion of the lumbar spine <60 degrees Range of motion: Extension of the lumbar spine <20 degrees Gaenslen's Test positive right side / left side Vishal test: positive right side / left side Thigh Thrust Test positive right side / left side Sacral Thrust Test positive right side / left side Assessment and plan: Chronic LBP secondary to lumbar DDD, spondylosis with facet arthropathy without myelopathy Recommendation of BL RFA L4-L5, L5-S1. Pt experienced significant pain relief s/p prior RFA procedure in Nov 2021. Risks, benefits of procedure discussed and pt verbalized understanding. Admits to anticoagulant use or medical history of diabetes. Protocol for discontinuation/ continuation of medications [place] procedure discussed. All questions answered. I have spent less than 30 minutes on patient care today. Dr Barahona was available by phone for the evaluation of this patient. The time was used to review the medical records including relevant urine studies and Prescription history (MAPs), review of the available imaging, evaluation and examination of the patient, coordination of care with the medical staff and if applicable referring physicians, as well as creation of the medical record PQRS Narrative: Hx Alcohol Use (MH) Yes: 2 BEERS A WEEK Home Medications: Ambulatory Orders Enalapril [Vasotec] 10 mg PO DAILY@189910/05/20 Levothyroxine Sodium 88 mcg PO 0 10/05/20 Multivit-Min/Folic/Vit K/Lycop [Men's Multivitamin Tablet] 1 each PO HS 10/05/20 Rosuvastatin Calcium 5 mg PO DAILY@0 10/05/20 Ubidecarenone [Co Q-10] 200 mg PO HS 10/05/20 traMADol HCL [Ultram] 50 mg PO TID PRN 10/05/20 Nf-Horse Ligament Gel 1 applic TOPICAL DIRECTED PRN 03/30/21 Ibuprofen [Motrin] 800 mg PO Q8HR PRN 04/01/21 Diclofenac Sodium [Voltaren Arthritis Pain 1% Gel] 1 applic TOPICAL BID 30 Days #100 gram 11/07/21 tiZANidine HCL [Zanaflex] 4 mg PO Q12H PRN 30 Days #60 capsule 01/04/22 Controlled Substance Measures - Controlled Substance Measures Is patient prescribed a controlled substance at discharge?: No
== END ==
LOC: PNWHC3 08:24
PROVIDERS: ATTEND Specialist
DX: M51.36 Other intervertebral disc degeneration, lumbar region (principal); M47.816 Spondylosis without myelopathy or radiculopathy, lumbar region
CPT/HCPCS: 99211

== ENCOUNTER 2022-11-03 06:20 | Day surgery (SDC) | payer MEDICARE ==
[~2022-11-03 06:20] MED LIST changes: +LIDOCAINE 1% (10MG/ML) FOR IV START INTRADERMA PRN
[2022-11-03 07:03] VITALS: TEMP 97.1
[2022-11-03] MEDS ORDERED: MIDAZOLAM 2 MG/2 ML VIAL ONE (07:47)
[2022-11-03] MEDS ORDERED: fentaNYL (PF) 50 MCG/ML 2 ML AMP ONE (07:47)
[2022-11-03] MEDS ORDERED: ROPIVACAINE 5 MG/ML 20 ML AMPULE ONE (07:49)
[2022-11-03] MEDS ORDERED: methylPREDNISolone ACETATE 40 MG/ML 1 ML VIAL ONE (07:49)
--- NOTE | 2022-11-03 08:13 | P.PCN ---
Date of Procedure: 11/03/22 Procedure(s) Performed: PREOPERATIVE DIAGNOSIS: 1-Lumbar Spondylosis with Facet Arthropathy without myelopathy. 2- Lumber degenerative disc disease. POSTOPERATIVE DIAGNOSIS: 1- Lumbar Spondylosis with Facet Arthropathy without myelopathy. 2- Lumber degenerative disc disease. PROCEDURES : Bilateral Radiofrequency thermocoagulation, L3 , L4 , and L5 medial branch, with fluoroscopic guidance (fluoroscopy images available in the radiology department) ( to denervate the facet joint at bilateral L4-5 ,and L5-S1 levels ). ANESTHESIA: Monitored anesthesia care as per anesthesia department . EBL: Minimal PROCEDURE INDICATION: The patient with low back pain secondary to lumbar facet arthropathy who had more than 50% relief of her pain with previous diagnostic lumbar medial branch block with bupivacaine. PROCEDURE DESCRIPTION / TECHNIQUE: The patient was seen and identified in the preoperative area. Risks, benefits, complications, including but not limited to risk of infection ,bleeding , allergic reactions to the medications and no complete pain releife , and alternatives were discussed with the patient, the patient agreed to proceed with the procedure and signed the consent. IV was started. Vital signs remained stable throughout the procedure. Patient was taken to the OR and time out was completed. The patient was placed in the prone position on the procedure table. The lumber area was prepped and draped in the usual sterile fashion. . Vital signs were closely monitored during the procedure .IV sedation was used during the procedure to decrease patients anxiety. Using AP and then oblique fluoroscopy, the ``eye of the Kp dog cor responding to the connection between the superior and transverse articular processes of right L3, L4, and L5 were identified, marked, and localized with 1% lidocaine. Subsequently, a [id number] radiofrequency cannula with a 10- mm active tip was advanced guided by fluoroscopy to each of the``eyes of the Kp dog at right L3, L4, and L5. Each site then underwent sensory testing at 50 Hz and 0 to 1 volt and motor testing at 2.5 Hz and 0 to 3 volt with local stimulation, but no radicular symptoms down the legs. Thereafter each sites underwent radiofrequency thermocoagulation at 80 degrees celsius for 90 seconds after injecting 0.5 ml of PF Ropivacaine 1ml, then after the thermocoagulation done , 1 ml of the block solution containing Depo-Medrol 20 mg and 3 ml of Ropivacaine 0.5% was injected at the right L3 , L4 , and L5 , levels after negative aspiration of CSF and blood and with no paresthesias. Cannulas were retracted while injecting lidocaine 1% until the needle is out. The same procedure was repeated at the level of Left L3, L4, and L5 levels. At the end of the procedure, the skin was cleansed and bandages were applied. COMPLICATIONS: No acute complications. DISPOSITION / PLANS: The patient was placed in a supine position and transferred to the recovery area in a stable condition for observation and was discharged from the recovery room after meeting discharge criteria. Home discharge instructions given to the patient by the staff. The patient was reexamined prior to discharge. The patient will schedule a follow up in the clinic in 2-4 weeks.
[2022-11-03] MEDS ORDERED: IV FLUID CONTINUATION 1,000 ML IV ONE (08:18)
[2022-11-03 08:22] VITALS: RESP 16
--- NOTE | 2022-11-03 08:25 | FL ---
Intraoperative/procedural fluoroscopic services were provided. Total fluoroscopy time is 16.1 seconds with a total of 6 submitted images to PACS. Please see the operative/procedural note for further det ails. DAP: [id number] mGym2
[2022-11-03 08:34] VITALS: BP 126/71; PULSE 51
== END 2022-11-03 08:55 | disposition home or self-care (01) ==
LOC: ORPAIN 06:20
PROVIDERS: ATTEND Specialist
DX: M51.36 Other intervertebral disc degeneration, lumbar region (principal); M47.816 Spondylosis without myelopathy or radiculopathy, lumbar region; I10 Essential (primary) hypertension; E78.5 Hyperlipidemia, unspecified; E07.9 Disorder of thyroid, unspecified; Z79.890 Hormone replacement therapy; Z79.899 Other long term (current) drug therapy; Z98.890 Other specified postprocedural states
CPT/HCPCS: 64635; 64636 ×2; 99152; J2250; J1030; J3010; J2795

== ENCOUNTER → 2022-11-22 | Outpatient (CLI) | payer MEDICARE ==
[2022-11-22 15:07] VITALS: BP 138/81; PULSE 78; RESP 18; TEMP 98
--- NOTE | 2022-11-22 15:10 | P.PAINPG ---
PQRS Measure Charge Sheet Comment: A 77 yr old male with a history of severe and chronic LBP secondary to lumbar DDD and spondylosis with facet arthropathy without myelopathy presents today for BL RFA L4-L5, L5-S1. Pt states he experienced 90% pain relief s/p procedure. Pain level is provoked at 6 /10 in intensity, constant, localized in the lumbar spine, dull/ achy/ sharp in character w shooting towards the BL feet. Pain is provoked by walking/ standing for periods of 5-10 min. Pain is alleviated with injections, Pt years ago, chiropractic treatments yearly w last visit 8 mo ago, heat, medications (Tyl), topical, repositioning and rest. Interventional pain procedures completed include BL RFA L3-L5 #2 (Oct 2022) Patient is currently on Tyl Patient denies any side effects of the medication(s), denies excessive drowsiness or sleepiness, denies suicidal ideation and reports that the current pain medication is helping to control the pain and improve activities of daily living. Patient denies any motor or sensory deficits. Patient denies any fever or night sweats, denies any change in the bowel movements or urination. Physical Examination: -Constitutional: Cooperative. Not in acute distress . - Neurologic: Cranial nerve II to XII intact. No focal neurological deficits. - Psychatric: Alert & oriented x 3. Matching mood & appropriate affect. Judgment and insight intact. - Musculoskeletal: Cervical spine: Muscle bulk/ tone/ strength in the bilateral upper extremities normal Vertebral body tenderness to palpation over Spurling test positive Distraction test positive Facet loading test positive TTP Thoracic spine Muscle bulk / tone/ strength in the bilateral paraspinal muscles normal Vertebral body tender to palpation over Facet loading test positive TTP Lumbar spine: Motor bulk/ tone/ strength lower extremities , thigh and legs : 5/5 Deep tendon reflexes : Normal Knee Jerk. Normal Ankle Jerk . Vertebral body tenderness to palpation over Loja Test positive Lumbar Facet Loading Test positive Straight Leg Raise: positive at 30 degrees right side/ left side Gaenslen's Test positive Sacral spine : Severe tenderness over the Sacroiliac joint: right side / left side Range of motion: Flexion of the lumbar spine <60 degrees Range of motion: Extension of the lumbar spine <20 degrees Gaenslen's Test positive right side / left side Vishal test: positive right side / left side Thigh Thrust Test positive right side / left side Sacral Thrust Test positive right side / left side Assessment and plan: Chronic LBP secondary to lumbar DDD, spondylosis with facet arthropathy without myelopathy Pt experienced sufficient pain relief w procedure. He will manage residual pain on his own and may return to the clinic on an as needed basis. All questions answered. I have spent less than 30 minutes on patient care today. Dr Barahona was available by phone for the evaluation of this patient. The time was used to review the medical records including relevant urine studies and Prescription history (MAPs), review of the available imaging, evaluation and examination of the patient, coordination of care with the medical staff and if applicable refe rring physicians, as well as creation of the medical record PQRS Narrative: Hx Alcohol Use (MH) Yes: 2 BEERS A WEEK Home Medications: Ambulatory Orders Enalapril [Vasotec] 10 mg PO DAILY@189910/05/20 Levothyroxine Sodium 88 mcg PO 189910/05/20 Multivit-Min/Folic/Vit K/Lycop [Men's Multivitamin Tablet] 1 each PO 189910/05/20 Rosuvastatin Calcium 5 mg PO DAILY@189910/05/20 Ubidecarenone [Co Q-10] 200 mg PO HS 10/05/20 Ibuprofen [Motrin] 800 mg PO Q8HR PRN 04/01/21 Diclofenac Sodium [Voltaren Arthritis Pain 1% Gel] 1 applic TOPICAL BID 30 Days #100 gram 11/07/21 Gericare Stool Softner 1 tab PO 189911/01/22 Controlled Substance Measures - Controlled Substance Measures Is patient prescribed a controlled substance at discharge?: No
== END ==
LOC: PNWHC3 13:45
PROVIDERS: ATTEND Specialist
DX: M51.36 Other intervertebral disc degeneration, lumbar region (principal); M47.816 Spondylosis without myelopathy or radiculopathy, lumbar region; G89.29 Other chronic pain; M53.3 Sacrococcygeal disorders, not elsewhere classified
CPT/HCPCS: 99211

== ENCOUNTER → 2023-08-13 | Outpatient (CLI) | payer MEDICARE ==
--- NOTE | 2023-08-13 17:27 | US ---
EXAMINATION TYPE: US carotid duplex BILAT DATE OF EXAM: 08/13/2023 COMPARISON: NONE CLINICAL INDICATION: Male, 77 years old with history of I10 HTN; dizzy, migraines, HTN, no h/o stroke TECHNIQUE: Carotid duplex ultrasound examination. Indirect Doppler criteria was utilized. FINDINGS: EXAM MEASUREMENTS: RIGHT: Peak Systolic Velocity (PSV) cm/sec ----- Right CCA: 55.7 ----- Right ICA: 45.4 ----- Right ECA: 68.9 ICA/CCA ratio: 0.8 RIGHT: End Diastole cm/sec ----- Right CCA: 9.9 ----- Right ICA: 11.4 ----- Right ECA: 6.6 LEFT: Peak Systolic Velocity (PSV) cm/sec ----- Left CCA: 53.0 ----- Left ICA: 80.7 ----- Left ECA: 68.6 ICA/CCA ratio: 1.3 LEFT: End Diastole cm/sec ----- Left CCA: 10.3 ----- Left ICA: 18.9 ----- Left ECA: 8.2 VERTEBRALS (direction of flow): Right Vertebral: Antegrade Left Vertebral: Antegrade Rhythm: Normal PROTECTION MANAGER NOTES: Mild homogeneous plaque with no stenosis seen IMPRESSION: Less than 50% stenosis bilateral carotid bifurcations. Criteria for Assigning % of Stenosis / Diameter reduction (Estimation based on the indirect measurements of the internal carotid artery velocities (ICA PSV). 1. Normal (no stenosis)=ICA PSV < 125 cm/s: ratio < 2.0: ICA EDV<40 cm/s. 2. Less than 50% stenosis=ICA PSV < 125 cm/s: ratio < 2.0: ICA EDV<40 cm/s. 3. 50 to 69% stenosis=ICA PSV of 125 to 230 cm/s: ration 2.0 ? 4.0: ICA EDV 40-100 cm/s. 4. Greater than 70% stenosis to near occlusion= ICA PSV > 230 cm/s: ratio > 4.0: ICA EDV > 100 cm/s. 5. Near occlusion= ICA PSV velocities may be low or undetectable: variable ratio and ICA EDV. 6. Total occlusion=unable to detect flow.
== END | disposition home or self-care (01) ==
LOC: RADUSWWP 16:14
PROVIDERS: ATTEND Family Medicine
DX: I10 Essential (primary) hypertension (principal); G43.909 Migraine, unspecified, not intractable, without status migrainosus; R42 Dizziness and giddiness
CPT/HCPCS: 93880

== ENCOUNTER → 2023-10-08 | Outpatient (CLI) | payer MEDICARE ==
[2023-10-08 10:18] VITALS: BP 159/92; PULSE 68; RESP 16; TEMP 97.9
--- NOTE | 2023-10-08 11:04 | XR ---
EXAMINATION TYPE: XR lumbar spine 3V DATE OF EXAM: 10/08/2023 Comparison: None Clinical History: 78-year-old male M47.816 Lumbar Spondylosis M51.36 OTHER INTERVERTE Findings: Leftward truncal shift. Cholecystectomy clips. 5 lumbar type vertebral bodies. Hypertrophic facet art hropathy throughout especially mid to lower lumbar spine. There is moderate multilevel disc/endplate degenerative change with a disc bulging and endplate spondylosis. Vertebral body heights are preserve d and alignment is maintained. Slight accentuated lower lumbar lordosis. Impression: Moderate multilevel disc disease. Hypertrophic facet arthropathy especially mid to lower lumbar spine . No vertebral compression collapse or malalignment.
--- NOTE | 2023-10-08 14:56 | P.PAINPG ---
PQRS Measure Charge Sheet Comment: A 78 yr old male with a history of severe and chronic LBP secondary to lumbar DDD and spondylosis with facet arthropathy without myelopathy presents today for evaluation. Pt underwent a BL RFA of the L3-L5 in Oct 2022 where he experienced 90% pain relief x 8 mo s/p procedure. Pain level is provoked at 7 /10 in intensity, intermittent, predominantly axial, localized in the lumbar spine, sharp in character without shooting pain. Pain is provoked by walking/ standing for periods of >5 min. Pain is alleviated with injections, PT years ago, chiropractic treatments yearly w last visit in 2022, physician guided stretches daily since Jul 2023, heat & ice, medications, topical, repositioning and rest. Oswestry axial pain score of 26. Interventional pain procedures completed include BL RFA L3-L5 #2 (Oct 2022) Patient is currently on Tyl Arthritis Patient denies any side effects of the medication(s), denies excessive drowsiness or sleepiness, denies suicidal ideation and reports that the current pain medication is helping to control the pain and improve activities of daily living. Patient denies any motor or sensory deficits. Patient denies any fever or night sweats, denies any change in the bowel movements or urination. Physical Examination: -Constitutional: Cooperative. Not in acute distress . - Neurologic: Cranial nerve II to XII intact. No focal neurological deficits. - Psychatric: Alert & oriented x 3. Matching mood & appropriate affect. Judgment and insight intact. - Musculoskeletal: Cervical spine: Muscle bulk/ tone/ strength in the bilateral upper extremities normal Vertebral body tenderness to palpation over Spurling test positive Distraction test positive Facet loading test positive TTP Thoracic spine Muscle bulk / tone/ strength in the bilateral paraspinal muscles normal Vertebral body tender to palpation over Facet loading test positive TTP Lumbar spine: Motor bulk/ tone/ strength lower extremities , thigh and legs : 5/5 Deep tendon reflexes : Normal Knee Jerk. Normal Ankle Jerk . Vertebral body tenderness to palpation over Loja Test positive Lumbar Facet Loading Test positive BL L4-L5, L5-S1 Straight Leg Raise: positive at 30 degrees right side/ left side Gaenslen's Test positive Sacral spine : Severe tenderness over the Sacroiliac joint: right side / left side Range of motion: Flexion of the lumbar spine <60 degrees Range of motion: Extension of the lumbar spine <20 degrees Gaenslen's Test positive right side / left side Vishal test: positive right side / left side Thigh Thrust Test positive right side / left side Sacral Thrust Test positive right side / left side Imaging; Assessment and plan: Chronic LBP secondary to lumbar DDD, spondylosis with facet arthropathy without myelopathy Recommendation of lumbar x ray M51.36 May need additional testing if indicated. Documentation of physician guided stretches provided. All questions answered. I have spent less than 30 minutes on patient care today. Dr Barahona was available by phone for the evaluation of this patient. The time was used to review the medical records including relevant urine studies and Prescription history (MAPs), review of the available imaging, evaluation and examination of the patient, coordination of care with the medical staff and if applicable referring physicians, as well as creation of the medical record PQRS Narrative: Hx Alcohol Use (MH) Yes: 2 BEERS A WEEK Home Medications: Ambulatory Orders Enalapril [Vasotec] 10 mg PO DAILY@189910/05/20 Levothyroxine Sodium 88 mcg PO 189910/05/20 Multivit-Min/Folic/Vit K/Lycop [Men's Multivitamin Tablet] 1 each PO 189910/05/20 Rosuvastatin Calcium 5 mg PO DAILY@189910/05/20 Ubidecarenone [Co Q-10] 200 mg PO HS 10/05/20 Ibuprofen [Motrin] 800 mg PO Q8HR PRN 04/01/21 Diclofenac Sodium [Voltaren Arthritis Pain 1% Gel] 1 applic TOPICAL BID 30 Days #100 gram 11/07/21 Gericare Stool Softner 1 tab PO 189911/01/22 Controlled Substance Measures - Controlled Substance Measures Is patient prescribed a controlled substance at discharge?: No
== END ==
LOC: PNWHC3 09:10
PROVIDERS: ATTEND Specialist
DX: M51.37 Other intervertebral disc degeneration, lumbosacral region (principal); M47.817 Spondylosis without myelopathy or radiculopathy, lumbosacral region; G89.29 Other chronic pain
CPT/HCPCS: 72100; G0463; 99211

== ENCOUNTER → 2023-10-25 | Outpatient (CLI) | payer MEDICARE ==
--- NOTE | 2023-10-25 22:58 | MR ---
EXAMINATION TYPE: MR lumbar spine wo con DATE OF EXAM: 10/25/2023 COMPARISON: None HISTORY: Bilateral leg pain x 4 years. CONTRAST: 0 mL intravenous Gadavist. TECHNIQUE: Multiplanar, multisequence images of the lumbar spine were acquired. FINDINGS: Cord terminates at the T12 level. L5-S1: No significant disc bulge or disc herniation. No spinal canal stenosis. No foraminal stenosi s. . L4-L5: Mild disc bulge eccentric thecal sac flattening. No foraminal stenosis. Facet hypertrophy is present with mild posterior lateral thecal sac compression. No spinal canal stenosis is present. L3-L4: No significant disc bulge or disc herniation. No spinal canal stenosis. Moderate bilateral f oraminal stenosis is present. Mild facet hypertrophy is present.. L2-L3: No significant disc bulge or disc herniation. No spinal canal stenosis. No foraminal stenosi s. Mild bilateral foraminal narrowing is present. L1-L2: No significant disc bulge or disc herniation. No spinal canal stenosis. No foraminal stenosi s. . T12-L1: No significant disc bulge or disc herniation. No spinal canal stenosis. No foraminal stenos is. Neural foramen are patent.. IMPRESSION: 1. Diffuse disc desiccation throughout the lumbar spine. 2. Mild disc bulging L4-5 with mild anterior thecal sac compression 3. Mild to moderate foraminal narrowing lower lumbar spine discussed above
== END | disposition home or self-care (01) ==
LOC: RADMRIMAIN 18:26
PROVIDERS: ATTEND Specialist
DX: M99.73 Connective tissue and disc stenosis of intervertebral foramina of lumbar region (principal); M51.26 Other intervertebral disc displacement, lumbar region; M51.36 Other intervertebral disc degeneration, lumbar region; M79.662 Pain in left lower leg; M79.661 Pain in right lower leg
CPT/HCPCS: 72148

== ENCOUNTER → 2023-11-05 | Outpatient (CLI) | payer MEDICARE ==
[2023-11-05 08:48] VITALS: BP 134/74; PULSE 72; RESP 16; TEMP 97.3
--- NOTE | 2023-11-05 15:01 | P.PAINPG ---
PQRS Measure Charge Sheet Comment: A 78 yr old male with a history of severe and chronic LBP secondary to lumbar DDD and spondylosis with facet arthropathy without myelopathy presents today for evaluation. Pt underwent a BL RFA of the L3-L5 in Oct 2022 where he experienced 75% pain relief x 9 mo s/p procedure. Pain level is provoked at 8 /10 in intensity, intermittent, predominantly axial, localized in the lumbar spine, sharp in character w occasional shooting pain L & R of midline. Pain is provoked by walking/ standing for periods of >5 min. Pain is alleviated with injections, PT years ago, physician guided stretches daily since mid September 2023, chiropractic treatments yearly w last visit in 2022, physician guided stretches daily since Jul 2023, heat & ice, medications, topical, repositioning and rest. Oswestry axial pain score of 28. Interventional pain procedures completed include BL RFA L3-L5 x2 (Oct 2022) Patient is currently on Tyl Arthritis Patient denies any side effects of the medication(s), denies excessive drowsiness or sleepiness, denies suicidal ideation and reports that the current pain medication is helping to control the pain and improve activities of daily living. Patient denies any motor or sensory deficits. Patient denies any fever or night sweats, denies any change in the bowel movements or urination. Physical Examination: -Constitutional: Cooperative. Not in acute distress . - Neurologic: Cranial nerve II to XII intact. No focal neurological deficits. - Psychatric: Alert & oriented x 3. Matching mood & appropriate affect. Judgment and insight intact. - Musculoskeletal: Cervical spine: Muscle bulk/ tone/ strength in the bilateral upper extremities normal Vertebral body tenderness to palpation over Spurling test positive Distraction test positive Facet loading test positive TTP Thoracic spine Muscle bulk / tone/ strength in the bilateral paraspinal muscles normal Vertebral body tender to palpation over Facet loading test positive TTP Lumbar spine: Motor bulk/ tone/ strength lower extremities , thigh and legs : 5/5 Deep tendon reflexes : Normal Knee Jerk. Normal Ankle Jerk . Vertebral body tenderness to palpation over Loja Test positive Lumbar Facet Loading Test positive BL L4-L5, L5-S1 Straight Leg Raise: positive at 30 degrees right side/ left side Gaenslen's Test positive Sacral spine : Severe tenderness over the Sacroiliac joint: right side / left side Range of motion: Flexion of the lumbar spine <60 degrees Range of motion: Extension of the lumbar spine <20 degrees Gaenslen's Test positive right side / left side Vishal test: positive right side / left side Thigh Thrust Test positive right side / left side Sacral Thrust Test positive right side / left side Imaging: MRI non contrast of the lumbar spine from 10/25/23 reviewed Assessment and plan: Chronic LBP secondary to lumbar DDD, spondylosis with facet arthropathy without myelopathy Recommendation of BL RFA L3-L5. Pt exhibited substantial pain relief w prior BL RFA L3-L5. Risks, benefits of procedure discussed and pt verbalized understanding. Protocol for discontinuation/continuation of medication surrounding procedure discussed. Minimal anesthesia including Fentanyl and Versed if clinically indicated. All questions answered. I have spent less than 30 minutes on patient care today. Dr Barahona was availab le by phone for the evaluation of this patient. The time was used to review the medical records including relevant urine studies and Prescription history (MAPs), review of the available imaging, evaluation and examination of the patient, coordination of care with the medical staff and if applicable referring physicians, as well as creation of the medical record PQRS Narrative: Hx Alcohol Use (MH) Yes: 2 BEERS A WEEK Home Medications: Ambulatory Orders Enalapril [Vasotec] 10 mg PO DAILY@189910/05/20 Levothyroxine Sodium 88 mcg PO 189910/05/20 Multivit-Min/Folic/Vit K/Lycop [Men's Multivitamin Tablet] 1 each PO 189910/05/20 Rosuvastatin Calcium 5 mg PO DAILY@189910/05/20 Ubidecarenone [Co Q-10] 200 mg PO HS 10/05/20 Ibuprofen [Motrin] 800 mg PO Q8HR PRN 04/01/21 Diclofenac Sodium [Voltaren Arthritis Pain 1% Gel] 1 applic TOPICAL BID 30 Days #100 gram 11/07/21 Gericare Stool Softner 1 tab PO 189911/01/22 Controlled Substance Measures - Controlled Substance Measures Is patient prescribed a controlled substance at discharge?: No
== END ==
LOC: PNWHC3 08:30
PROVIDERS: ATTEND Specialist
DX: M51.37 Other intervertebral disc degeneration, lumbosacral region (principal); M47.817 Spondylosis without myelopathy or radiculopathy, lumbosacral region
CPT/HCPCS: 99211

== ENCOUNTER 2023-11-22 06:35 | Day surgery (SDC) | payer MEDICARE ==
[2023-11-22 06:54] VITALS: TEMP 97.2
[2023-11-22] MEDS: IV FLUID CONTINUATION 1,000 ML IV ONE ×2 (06:57→08:02)
[2023-11-22] MEDS: LACTATED RINGERS 1,000 ML IV SCH (06:58)
[2023-11-22] MEDS ORDERED: MIDAZOLAM 2 MG/2 ML VIAL ONE (07:21)
[2023-11-22] MEDS ORDERED: ROPIVACAINE 5MG/ML 20ML VIAL ONE (07:21)
[2023-11-22] MEDS ORDERED: fentaNYL (PF) 50 MCG/ML 2 ML AMP ONE (07:21)
--- NOTE | 2023-11-22 08:11 | P.PCN ---
Description of Procedure: Preprocedure diagnosis. 1. Lumbar spondylosis with facet joint arthropathy without myelopathy. 2. Lumbar degenerative disc disease. Procedure diagnosis. 1. Lumbar spondylosis with facet joint arthropathy without myelopathy. Space 2. Lumbar degenerative disc disease. Procedure.Bilateral radiofrequency thermocoagulation L3, L4 and L5 medial branch, with fluoroscopic guidance (fluoroscopy images are available in the radiology department) (to Denervate the facet joint at bilateral L4- 5 and L5-S1 levels) Anesthesia. moderate sedation with intravenous Versed 2 mg and fentanyl 100 g and local infiltration with ropivacaine 0.5%. Continuous verbal communication was maintained with patient. EBL minimal. Procedure indication. The patient with low back pain secondary to lumbar facet arthropathy who he had more than 50% relief of her pain with previous diagnostic lumbar medial branch block with local anesthetics.The patient was seen and identified in the preoperative area. Risks: Benefits, complications, including but not limited to risk of infection, bleeding, ALLERGIC reaction to the medications and no complete pain relief and alternatives were discussed with the patient, the patient admitted to proceed with the procedure and signed the consent. Procedure description/technique. Patient was taken to the OR and timeout was completed. The patient was placed in prone position on the procedure table. The lumbar area was prepped and draped in the usual sterile fashion. After injecting 5 ml of 1% Lidocaine subcutaneously,using AP and then oblique, lateral view of fluoroscopy, 18-gauge 100 mm radiofrequency cannula with a 10 mm active tip was advanced and guided by fluoroscopy at the junction of supirior articular process with RIGHT ala of the sacrum, transverse process of L4&L5. Each site then underwent positive sensory testing with 50 Hz and 0-1 V and negative motor testing at 2.5 Hz and 0-3 V with local stimulation but no radicular symptoms down the leg. Thereafter each sites underwent radiofrequency thermocoagulation at 80C for 90 seconds after injecting 1 mL of preservative- free 0.5% ropivacaine. Repeat radiofrequency ablation was done at each points after rotating the needle 180 with same setting. This same procedure was repeated twice on the LEFT side at the junction of s uperior articular process with ala of sacrum,transverse process of L4, L5 with the same settings after positive sensory,negative motor stimulation and infiltration of 1.0 ml 5% Ropivacaine at each site . RF needles were taken out. At the end of the procedure the skin was cleansed and Band-Aids were applied. Disposition patient tolerated the procedure well. No complication. She was placed in supine position and transferred to the recovery area in stable condition for observation and was discharged home from recovery room after meeting discharge criteria. Discharge instructions given to the patient by the staff. The patient were examined prior to discharge the patient will schedule a follow-up in the clinic in 2-4 weeks.
--- NOTE | 2023-11-22 08:15 | FL ---
Fluoroscopy History: RF LUMBAR RF LUMBAR FL TIME: 57 sec DAP: .[id number]
[2023-11-22 08:20] VITALS: BP 117/68; PULSE 57; RESP 18
== END 2023-11-22 08:25 | disposition home or self-care (01) ==
LOC: ORPAIN 06:35
PROVIDERS: ATTEND Pain Medicine Interventional Pain Medicine
DX: M47.816 Spondylosis without myelopathy or radiculopathy, lumbar region (principal); M51.36 Other intervertebral disc degeneration, lumbar region; Z79.1 Long term (current) use of non-steroidal anti-inflammatories (NSAID)
CPT/HCPCS: 64635; 64636 ×2; 99152; 99153; J2250; J3010; J2795

== ENCOUNTER 2023-11-25 20:07 | Emergency (ER) | payer MEDICARE ==
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
[2023-11-25] MEDS: SODIUM CHLORIDE 0.9% 1,000 ML IV STA (21:17)
[2023-11-25 21:56] LABS: Basophils % (A) 0 %; Eosinophils # (A) 0.2 k/uL (0-0.7); Eosinophils % (A) 3 %; HCT 41.9 % (39.0-53.0); HGB 13.8 gm/dL (13.0-17.5); Lymphocytes # (A) 1.2 k/uL (1.0-4.8); Lymphocytes % (A) 21 %; MCH 30.5 pg (25.0-35.0); MCHC 32.9 g/dL (31.0-37.0); MCV 92.8 fL (80.0-100.0); Mean Platelet Volume 6.9; Monocytes # (A) 0.4 k/uL (0-1.0); Monocytes % (A) 7 %; Neutrophils % (A) 68 %; Platelet Count 219 k/uL (150-450); RBC 4.51 m/uL (4.30-5.90); RDW 13.3 % (11.5-15.5); WBC 5.9 k/uL (3.8-10.6)
[2023-11-25 22:16] LABS: Appearance,Urine Clear (Clear); Bilirubin,Urine Negative (Negative); Blood,Urine Negative (Negative); Color,Urine Light Yellow; Glucose,Urine (UA) Negative (Negative); Ketones,Urine Negative (Negative); Leukocyte Esterase,Urine Negative (Negative); Nitrite,Urine Negative (Negative); PH, Urine 5.5 (5.0-8.0); Protein,Urine Negative (Negative); Specific Gravity,Urine 1.026 (1.001-1.035); Urobilinogen,Urine <2.0 mg/dL (<2.0)
--- NOTE | 2023-11-25 22:17 | XR ---
EXAMINATION TYPE: XR ribs RT w pa chest xray DATE OF EXAM: 11/25/2023 CLINICAL HISTORY: Chest and right-sided rib pain TECHNIQUE: Single frontal view of the chest is obtained. A frontal and oblique images of the right-si ded ribs. COMPARISON: Prior CT chest April 29, 2020 FINDINGS: There is no suspicious new focal air space opacity, pleural effusion, or pneumothorax seen . The cardiac silhouette size remains within normal limits. The osseous structures are intact. No acute displaced fracture involving right-sided ribs. No suspicious destructive or expansile rib le vitor. Cholecystectomy clips are redemonstrated. IMPRESSION: No acute cardiopulmonary process. No acute or subacute displaced right-sided rib fractur es.
[2023-11-25 22:20] LABS: ALT 18 U/L (4-49); AST 25 U/L (17-59); African American GFR (CKD) >90 (>60 ml/min/1.73 sqM); Albumin 4.1 g/dL (3.5-5.0); Alkaline Phosphatase 61 U/L (38-126); Anion Gap 5 mmol/L; Blood Urea Nitrogen 20 mg/dL (9-20); Calcium 9.5 mg/dL (8.4-10.2); Carbon Dioxide 28 mmol/L (22-30); Chloride 106 mmol/L (98-107); Glucose 109 mg/dL (74-99); Lipase 175 U/L (23-300); Non-African American GFR(CKD) 78 (>60 ml/min/1.73 sqM); Phosphorus 3.7 mg/dL (2.5-4.5); Potassium 4.2 mmol/L (3.5-5.1); Sodium 139 mmol/L (137-145); Total Bilirubin 0.4 mg/dL (0.2-1.3); Total Protein 6.6 g/dL (6.3-8.2)
[2023-11-25 22:33] LABS: INR 0.9 (<1.2); Partial Thromboplastin Time 25.5 sec (22.0-30.0); Prothrombin Time 10.3 sec (10.0-12.5)
[2023-11-25] MEDS: MORPHINE SULFATE 4 MG/ML SYRINGE IVP STA (22:43)
[2023-11-25] MEDS: KETOROLAC 15 MG/ML 1 ML VIAL IVP STA (22:45)
[2023-11-26] MEDS: traMADol 50 MG STARTER PACK 3 TAB BTL PO STA (00:29)
[2023-11-26] MEDS: IBUPROFEN 600 MG STARTER PACK 4 TAB BTL PO STA (00:29)
[2023-11-26 00:38] VITALS: BP 169/80; PULSE 53; RESP 20; TEMP 97.9
== END 2023-11-26 00:37 | disposition home or self-care (01) ==
LOC: EC 20:07
DX: R07.89 Other chest pain (principal); R07.81 Pleurodynia; Z87.891 Personal history of nicotine dependence
CPT/HCPCS: 36415; 93005; 80053; 83605; 83690; 83735; 84100; 84484; 85025; 85610; 85730; 81003; 71101; 99285; 96374; 96375; 96361; J2270; J1885

== ENCOUNTER → 2023-12-10 | Outpatient (CLI) | payer MEDICARE ==
[2023-12-10 09:05] VITALS: BP 173/88; PULSE 69; RESP 16; TEMP 97.1
--- NOTE | 2023-12-10 15:07 | P.PAINPG ---
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 Pt states he experienced 75 % pain relief s/p procedure. Pain level is provoked at 3 /10 in intensity, in termittent, predominantly axial, localized in the lumbar spine, sharp in character w occasional shooting pain L & R of midline. Pain is provoked by walking/ standing for periods of >5 min. Pain is alleviated with injections, PT years ago, physician guided stretches daily since mid September 2023, chiropractic treatments yearly w last visit in 2022, physician guided stretches daily since Jul 2023, heat & ice, medications, topical, repositioning and rest. Oswestry axial pain score of 28. Interventional pain procedures completed include BL RFA L3-L5 x3 (Oct 2022, Oct 2023) Patient is currently on Tyl Arthritis Patient denies any side effects of the medication(s), denies excessive drowsiness or sleepiness, denies suicidal ideation and reports that the current pain medication is helping to control the pain and improve activities of daily living. Patient denies any motor or sensory deficits. Patient denies any fever or night sweats, denies any change in the bowel movements or urination. Physical Examination: -Constitutional: Cooperative. Not in acute distress . - Neurologic: Cranial nerve II to XII intact. No focal neurological deficits. - Psychatric: Alert & oriented x 3. Matching mood & appropriate affect. Judgment and insight intact. - Musculoskeletal: Cervical spine: Muscle bulk/ tone/ strength in the bilateral upper extremities normal Vertebral body tenderness to palpation over Spurling test positive Distraction test positive Facet loading test positive TTP Thoracic spine Muscle bulk / tone/ strength in the bilateral paraspinal muscles normal Vertebral body tender to palpation over Facet loading test positive TTP Lumbar spine: Motor bulk/ tone/ strength lower extremities , thigh and legs : 5/5 Deep tendon reflexes : Normal Knee Jerk. Normal Ankle Jerk . Vertebral body tenderness to palpation over Loja Test positive Lumbar Facet Loading Test positive BL L4-L5, L5-S1 Straight Leg Raise: positive at 30 degrees right side/ left side Gaenslen's Test positive Sacral spine : Severe tenderness over the Sacroiliac joint: right side / left side Range of motion: Flexion of the lumbar spine <60 degrees Range of motion: Extension of the lumbar spine <20 degrees Gaenslen's Test positive right side / left side Vishal test: positive right side / left side Thigh Thrust Test positive right side / left side Sacral Thrust Test positive right side / left side Imaging: MRI non contrast of the lumbar spine from 10/25/23 reviewed Assessment and plan: Chronic LBP secondary to lumbar DDD, spondylosis with facet arthropathy without myelopathy Recommendation of medication management. Tramadol 50mg #15 NR. Use, side effects, adverse reactions, safe storage discussed. All questions answered. I have spent less than 30 minutes on patient care today. Dr Barahona was available by phone for the evaluation of this patient. The time was used to review the medical records including relevant urine studies and Prescription history (MAPs), review of the available imaging, evaluation and examination of the patient, coordination of care with the medical staff and if applicable referring physicians, as well as creation of the medical record PQRS Narrative: Hx Alcohol Use (MH) Yes: 2 BEERS A WEEK Home Medications: Ambulatory Orders Enalapril [Vasotec] 40 mg PO DAILY@189910/05/20 Levothyroxine Sodium 88 mcg PO 189910/05/20 Multivit-Min/Folic/Vit K/Lycop [Men's Multivitamin Tablet] 1 each PO 189910/05/20 Rosuvastatin Calcium 5 mg PO DAILY@189910/05/20 Ubidecarenone [Co Q-10] 200 mg PO HS 10/05/20 Ibuprofen [Motrin] 800 mg PO Q8HR PRN 04/01/21 Diclofenac Sodium [Voltaren Arthritis Pain 1% Gel] 1 applic TOPICAL BID 30 Days #100 gram 11/07/21 Escitalopram [Lexapro] 10 mg PO HS 11/21/23 Controlled Substance Measures - Controlled Substance Measures Is patient prescribed a controlled substance at discharge?: Yes When asked, does pt state using other controlled substances?: No If prescribed controlled substance>3 days was MAPS reviewed?: Prescribed <3 Days
== END ==
LOC: PNWHC3 08:41
PROVIDERS: ATTEND Specialist
DX: M51.37 Other intervertebral disc degeneration, lumbosacral region (principal); M47.817 Spondylosis without myelopathy or radiculopathy, lumbosacral region
CPT/HCPCS: 99211